=== PATIENT | male | born 1975 | race Two or more races ===

== ENCOUNTER 2018-07-15 16:47 | Emergency (ER) | payer OTHER ==
[2018-07-15] MEDS ORDERED: ACETAMINOPHEN 325 MG TABLET (FP) ONE (16:58)
[2018-07-15] MEDS ORDERED: ACETAMINOPHEN 325 MG TABLET (FP) PO ONE (17:03)
[2018-07-15 17:04] VITALS: BP 141/91; PULSE 104; TEMP 100.8; BMI 41.1
--- NOTE | 2018-07-15 17:23 | PDOC ---
History of Present Illness - General Chief Complaint: Cold Symptoms Stated Complaint: COUGH Time Seen by Provider: 07/15/18 17:06 History Source: Patient, Family Exam Limitations: No Limitations - History of Present Illness Initial Comments: 07/15/18 17:24 Patient here with 2 daughters complaints of cough for the past 3-4 days, but onset of fever yesterday, MAXIMUM TEMPERATURE 102 at home. Has no phlegm production, has ear or throat pain, generalized body aches. Is use over-the- counter medication with minimal resolved. Timing/Duration: reports: just prior to arrival, getting worse Severity: reports: moderate Associated Symptoms: reports: chest pain/soreness, cough, earache, fever/chills , lightheadedness, muscle aches, nasal congestion, nasal drainage, wheezing Past History - Travel Traveled outside of the country in the last 30 days: No Close contact w/someone who was outside of country & ill: No - Past Medical History Allergies/Adverse Reactions: Allergies Allergy/AdvReac Type Severity Reaction Status Date / Time No Known Allergies Allergy Verified 07/15/18 17:02 Home Medications: Ambulatory Orders Azithromycin [Zithromax -] 250 mg PO UTDICT #6 tab 07/15/18 Guaifenesin [Mucinex] 600 mg PO ASDIR 07/15/18 - Suicide/Smoking/Psychosocial Hx Smoking History: Never smoked Review of Systems - Review of Systems Able to Perform ROS?: Yes Is the patient limited [place] proficient: Yes Constitutional: Yes: Symptoms Reported, See HPI, Fever, Malaise HEENTM: Yes: Symptoms Reported, See HPI, Nose Congestion Respiratory: Yes: Symptoms reported, See HPI, Cough. No: Wheezing ABD/GI: Yes: Symptoms Reported Neurological: Yes: Symptoms reported, See HPI, Headache All Other Systems: Reviewed and Negative *Physical Exam - Vital Signs Last Vital Signs Temp Pulse Resp BP Pulse Ox 100.8 F H 104 H 20 141/91 95 07/15/18 17:03 07/15/18 17:03 07/15/18 17:03 07/15/18 17:03 07/15/18 17:03 - Physical Exam Comments: 07/15/18 17:26 GENERAL: [The child is awake, alert, and appropriately interactive.] EYES: [The pupils are equal, round, and reactive to light, with clear, conjunctiva.but glassy] NOSE: [The nose with clear drainage EARS: [The ear canals and tympanic membranes are congested but landmarks easily visualed ] THROAT: [The oropharynx is clear with erythema, no exudates. The mucous membranes are moist.] NECK: [The neck is supple with mildly tender adenopathy, no menigemous] CHEST: [The lungs are coarse but clear without crackles, or wheezes.] HEART: [Heart is regular rhythm, with normal S1 and S2, no murmurs.] ABDOMEN: [The abdomen is soft and nontender with normal bowel sounds. There is no organomegaly and no mass. There is no guarding or rebound.] EXTREMITIES: [Extremities are normal.] NEURO: [Behavior is normal for age.cranky but easily,m Tone is normal.] SKIN: [Skin is unremarkable without rash or swelling. There is no bruising, and there are no other signs of injury.] General Appearance: Yes: Nourished, Appropriately Dressed, Apparent Distress, Mild Distress, Moderate Distress HEENT: positive: SHORTY, TMs Normal, Pharyngeal Erythema, Nasal Congestion, Rhinorrhea Neck: positive: Supple. negative: Tender Respiratory/Chest: positive: Lungs Clear (but coarse), Normal Breath Sounds. negative: Wheezing Gastrointestinal/Abdominal: positive: Soft. negative: Tender Extremity: positive: Normal Range of Motion Integumentary: positive: Dry, Pale, Diaphoresis (after tylenol) Neurologic: positive: painter drum II-XII NML intact, Fully Oriented, Alert, Normal Mood/ Affect, Motor Strength 5/5 Moderate Sedation - Procedure Monitoring Vital Signs: Procedure Monitoring Vital Signs Temperature 100.8 F H 07/15/18 17:03 Pulse Rate 104 H 07/15/18 17:03 Respiratory Rate 20 07/15/18 17:03 Blood Pressure 141/91 07/15/18 17:03 O2 Sat by Pulse Oximetry (%) 95 07/15/18 17:03 ED Treatment Course - Medications Given in the ED: ED Medications Discontinued Medications Generic Name Dose Route Start Last Admin Trade Name Freq PRN Reason Stop Dose Admin Acetaminophen 650 mg 07/15/18 17:03 07/15/18 17:03 Tylenol - PO 07/15/18 17:04 650 mg NOW ONE Administration Progress Note - Progress Note Progress Note: Upper respiratory infection, probable influenza. Patient does not have insurance and discussed cost of Tamiflu, patient agrees will opt not to take and use [id number] medications and conservative measures for treatment. CXR shows hyperaeration, no infiltrates., Will give watch and wait ZPack and instructions to start for worsen symptoms/ fevers/ cough, *DC/Admit/Observation/Transfer Diagnosis at time of Disposition: Influenzal acute upper respiratory infection - Discharge Dispostion Disposition: HOME Condition at time of disposition: Stable Decision to Admit order: No - Referrals - Patient Instructions Printed Discharge Instructions: DI for Viral Upper Respiratory Infection -- Adult Additional Instructions: Rest, drink lots of fluids: Teas, water, soups, Pedialyte Saltwater gargles Steamy showers/seem to face break up mucus Old-fashioned treatments help! Avoid contact with others until fevers and cough resolved as this is very contagious Lots of handwashing and good hygiene Continue [id number] medications for symptomatic relief Tylenol or Motrin for fever and pain START ZITHROMAX IF FEVERS PERSIST, COUGH WORSENS, SYMPTOMS WORSEN Followup with private physician in one to 2 days as needed or if worsening Return to emergency department for worsened symptoms, fevers, dehydration Influenza takes between 5 and 7 days for resolution To not participate in any activity, work, or school until fevers and cough are gone for at least one day - Post Discharge Activity Forms/Work/School Notes: Back to Work
== END 2018-07-15 18:08 | disposition home or self-care (01) ==
LOC: JERFT 16:47
DX: J11.1 Influenza due to unidentified influenza virus with other respiratory manifestations (principal)
CPT/HCPCS: 71046-TC-FY; 99281-25

== ENCOUNTER 2019-06-26 20:12 | Emergency (ER) | payer OTHER ==
[2019-06-26 20:34] VITALS: BP 140/82; PULSE 81; TEMP 98.1; BMI 39.8
--- NOTE | 2019-06-26 21:22 | PDOC ---
History of Present Illness - General Chief Complaint: Eye Problem Stated Complaint: PINK EYE Time Seen by Provider: 06/26/19 21:16 - History of Present Illness Initial Comments: 06/26/19 21:20 44-year-old male without comorbidities presents for left upper eyelid irritation x1 day without systemic symptoms or changes in vision. He does not wear contact lenses. Past History - Past Medical History Allergies/Adverse Reactions: Allergies Allergy/AdvReac Type Severity Reaction Status Date / Time No Known Allergies Allergy Verified 06/26/19 20:32 Home Medications: Ambulatory Orders Azithromycin [Zithromax -] 250 mg PO UTDICT #6 tab 07/15/18 Guaifenesin [Mucinex] 600 mg PO ASDIR 07/15/18 Erythromycin 0.5% Eye Ointment [Erythromycin 0.5% Eye Ointment -] 1 applic OS TID 5 Days #1 tube 06/26/19 - Psycho Social/Smoking Cessation Hx Smoking History: Never smoked Hx Alcohol Use: No Drug/Substance Use Hx: No Review of Systems - Review of Systems HEENTM: Yes: See HPI, Eye Pain *Physical Exam - Vital Signs Last Vital Signs Temp Pulse Resp BP Pulse Ox 98.1 F 81 16 140/82 96 06/26/19 20:32 06/26/19 20:32 06/26/19 20:32 06/26/19 20:32 06/26/19 20:32 - Physical Exam 06/26/19 21:21 There is an external vesicle on the medial aspect of the left upper lid Medical Decision Making - Medical Decision Making 06/26/19 21:21 Erythromycin eye ointment follow-up with ophthalmology Discharge - Discharge Information Problems reviewed: Yes Clinical Impression/Diagnosis: Hordeolum external Condition: Stable Disposition: HOME - Admission No - Additional Discharge Information Prescriptions: Erythromycin 0.5% Eye Ointment [Erythromycin 0.5% Eye Ointment -] 1 applic OS TID 5 Days #1 tube - Follow up/Referral Referrals: Chin Perez [Non Staff, Medical] - Rios Lewis [Non Staff, Medical] - Loe Blakely [Staff Physician] - Kate Chavez MD [Staff Physician] - Selvin Bustos MD [Staff Physician] - Selvin Bustos MD [Staff Physician] - Alejandra Baumann MD [Non Staff, Medical] - Wolf Hankins MD [Staff Physician] - Bailey Travis MD [Staff Physician] - Shaq Dick MD, MD [Non Staff, Medical] - Rios Johnson MD [Non Staff, Medical] - - Patient Discharge Instructions Patient Printed Discharge Instructions: GABRIELA Horta for Hordeolum Additional Instructions: Please use antibiotic eye ointment as directed and return to the emergency room for worsening symptoms. Without fail follow-up with eye doctor in one 1 day for further evaluation and treatment options. - Post Discharge Activity
== END 2019-06-26 21:40 | disposition home or self-care (01) ==
LOC: JERFT 20:12
DX: H00.014 Hordeolum externum left upper eyelid (principal)
CPT/HCPCS: 99281-25

== ENCOUNTER 2023-05-26 09:34 | Emergency (ER) | payer OTHER ==
[2023-05-26 09:58] VITALS: BP 138/86; PULSE 84; RESP 18; TEMP 98.9; BMI 46.8
[2023-05-26 10:45] LABS: BASO % 0.6 % (0-2.0); EOS % 1.2 % (0-4.5); HEMATOCRIT 52.8 % (35.4-49); HEMOGLOBIN 17.8 GM/dL (11.7-16.9); LYMPH % 24.8 % (8-40); MCH 29.9 pg (25.7-33.7); MCHC 33.7 g/dl (32.0-35.9); MEAN CELL VOLUME 88.7 fl (80-96); MEAN PLT VOLUME 8.9 fl (7.5-11.1); MONO % 6.1 % (3.8-10.2); NEUT % 67.3 % (42.8-82.8); PLATELET COUNT 163 10^3/uL (134-434); RBC 5.95 M/mm3 (4.00-5.60); RDW 14.1 % (11.9-15.9); WHITE BLOOD COUNT 9.5 K/mm3 (4.0-10.0)
[2023-05-26 11:26] LABS: POTASSIUM 4.1 mmol/L (3.5-5.1)
[2023-05-26 11:29] LABS: CALCIUM 9.2 mg/dL (8.5-10.1)
[2023-05-26 11:30] LABS: BLOOD UREA NITROGEN 16.5 mg/dL (7-18)
[2023-05-26 11:33] LABS: CREATININE 0.6 mg/dL (0.55-1.3)
== END 2023-05-26 15:41 | disposition home or self-care (01) ==
LOC: JERFT 09:34
DX: K60.3 Anal fistula (principal); M53.3 Sacrococcygeal disorders, not elsewhere classified; R22.2 Localized swelling, mass and lump, trunk; L02.32 Furuncle of buttock
CPT/HCPCS: 36415; 72193-TC; 80048; 85025; 99285-25; Q9967